=== PATIENT | female | born 1985 | race Caucasian/White ===

== ENCOUNTER 2016-07-18 16:33 | Emergency (ER) | payer BC ==
[~2016-07-18] VITALS: Ht 152.4 cm; Wt 72.6 kg
[2016-07-18 17:10] VITALS: BP_SYST 120
[2016-07-18 17:45] LABS: BILIRUBIN,URINE NEGATIVE (NEGATIVE); BLOOD, URINE 2+ (NEGATIVE); CLARITY/URINE CLEAR (CLEAR); COLOR,URINE YELLOW (YELLOW); GLUCOSE,URINE NEGATIVE (NEGATIVE); KETONES,URINE 1+ (NEGATIVE); LEUKOCYTE ESTERASE ,URINE NEGATIVE (NEGATIVE); NITRITE, URINE NEGATIVE (NEGATIVE); PROTEIN URINE NEGATIVE (NEGATIVE); UROBILINOGEN,URINE 0.2 (0.2-1.0)
[2016-07-18 17:46] LABS: EOSINOPHILS # (AUTO) 0.1 K/uL (0.0-0.4); HEMATOCRIT 35.9 % (36-48); HEMOGLOBIN 12.1 g/dL (12.0-16.0); MEAN CORPUSCULAR HEMOGLOBIN 27 pg (27-31); MEAN CORPUSCULAR HGB CONC 34 % (32-36); RED BLOOD CELL COUNT(AUTO) 4.53 MIL/uL (4.2-6.2)
[2016-07-18 17:51] LABS: BASOPHILS # (AUTO) 0.1 K/uL (0.0-0.2); EOSINOPHILS % (AUTO) 0.7 % (0.0-4.0); LYMPHOCYTES # (AUTO) 1.8 K/uL (1.0-5.5); LYMPHOCYTES % (AUTO) 13.7 % (20.5-51.5); MEAN CORPUSCULAR VOLUME 79 fL (79.0-98.0); MONOCYTES # (AUTO) 0.4 K/uL (0.0-1.0); MONOCYTES % (AUTO) 3.2 % (1.7-9.3); NEUTROPHILS # (AUTO) 10.7 K/uL (1.8-7.7); NEUTROPHILS % (AUTO) 81.4 % (40.0-70.0); PLATELET COUNT (AUTO) 339 K/uL (130-430); RED CELL DISTRIBUTION WIDTH 13.1 % (9.0-15.0); WHITE BLOOD COUNT (AUTO) 13.1 K/uL (4.8-10.8)
[2016-07-18 17:52] LABS: CALCIUM 8.7 mg/dL (8.4-11.0); CREATININE 0.74 mg/dL (0.55-1.30); POTASSIUM 3.5 mmol/L (3.5-5.1)
[2016-07-18 17:57] LABS: BACTERIA,URINE FEW /HPF (None Seen); MUCUS,URINE None Seen /LPF (None Seen); RBC,URINE NONE SEEN /HPF (0-3); WBC,URINE NONE SEEN /HPF (0-3)
[2016-07-18 18:12] LABS: TOTAL BILIRUBIN 0.2 mg/dL (0.0-1.0); TOTAL PROTEIN, SERUM 7.6 g/dL (6.4-8.3)
[2016-07-18 18:13] LABS: ALBUMIN 3.7 g/dL (3.4-4.8)
--- NOTE | 2016-07-18 19:45 | NUR ---
Patient to ER bed 3 to gown for evaluation. Side rails up. Report given to JOSEFINA Wolff.
--- NOTE | 2016-07-18 20:00 | NUR ---
pt. to ER [email or web address] states that she is 7 weeks and noticed a vaginal bleed this evening, denies n/v/d, denies sob, denies chest pain
--- NOTE | 2016-07-18 20:05 | NUR ---
Dr. daley at bedside examining the pt.
[2016-07-18 20:55] VITALS: BP_SYST 119
--- NOTE | 2016-07-18 20:55 | NUR ---
Patient given written and verbal discharge instructions and verbalizes understanding. ER MD dr. daley discussed with patient the results and treatment provided. Patient in stable condition. ID arm band removed. no Rx given. Patient educated on pain management and to follow up with PMD. Pain Scale 0/10 Opportunity for questions provided and answered.
== END 2016-07-18 20:55 | disposition home or self-care (01) ==
LOC: SED 16:33
DX: O46.8X1 Other antepartum hemorrhage, first trimester (principal); Z3A.01 Less than 8 weeks gestation of pregnancy; Z88.5 Allergy status to narcotic agent; Z88.1 Allergy status to other antibiotic agents
CPT/HCPCS: 36415; 76801; 80053; 81000-TC; 84702-TC; 85025; 86900; 86901; 99285

== ENCOUNTER 2023-05-02 22:01 | Emergency (ER) | payer BC ==
[~2023-05-02] VITALS: Ht 152.4 cm; Wt 71.2 kg
[2023-05-02 22:06] VITALS: BP_SYST 134; PULSE 117; RESP 18; TEMP 98.7; O2SAT 92
[2023-05-02] MEDS: ALBUTEROL SULFATE 0.083% 2.5 MG/3 ML VIAL.NEB INH ONE (22:32)
[2023-05-02] MEDS: predniSONE 20 MG TABLET PO ONE (22:36)
[2023-05-02] MEDS ORDERED: MED4 PO (23:10)
[2023-05-02] MEDS ORDERED: ALBMDI INH (23:10)
[2023-05-02 23:15] VITALS: BP_SYST 132; PULSE 100; RESP 18; TEMP 98.6; O2SAT 95
== END 2023-05-02 23:16 | disposition home or self-care (01) ==
LOC: SED 22:01
DX: J45.909 Unspecified asthma, uncomplicated (principal); R06.02 Shortness of breath; R05.9 Cough, unspecified; Z88.1 Allergy status to other antibiotic agents; Z88.5 Allergy status to narcotic agent; Z79.899 Other long term (current) drug therapy
CPT/HCPCS: 99283; 71045; 93005; 94640; J7512